=== PATIENT | male | born 1965 | race Caucasian/White ===

== ENCOUNTER 2017-03-07 20:19 | Emergency (ER) | payer MEDICARE ==
[~2017-03-07 20:19] MED LIST: ALPRAZOLAM0.5 MG PO; BREO INH; IPRAT-ALBUT 0.5-3 ML INH; MEDROL DOSEPAK 24 MG PO; OMNICEF 300 MG300 MG PO; OXYCODONE HCL10 MG PO; ROXICODONE TAB 55 MG PO; SPIRIVA HANDIH18 MCG INH; VENTOLIN HFA 66.7 GM INH
== END 2017-03-08 02:00 | disposition left against medical advice (07) ==
LOC: ER1 20:19
DX: Z53.21 Procedure and treatment not carried out due to patient leaving prior to being seen by health care provider (principal)
CPT/HCPCS: 81001

== ENCOUNTER 2021-01-29 00:03 | Observation (INO) | payer MEDICARE ==
[~2021-01-29] VITALS: Ht 182.9 cm; Wt 97.5 kg
[~2021-01-29 00:03] MED LIST changes: +ASPIR 8181 MG PO; +BREO ELLIPTA 11 EACH INH; -BREO INH; +FOLIC ACID 1 MG1 MG PO; +HYDROCHLOROTHIA25 MG PO; +LOPRESSOR 25 MG25 MG PO; +NEURONTIN 300300 MG PO; +OXYCODONE HCL30 MG PO; +OXYCONTIN 40 MG40 MG PO; +THIAMINE HCL100 MG PO; +VENTOLIN/PROVE0.5 ML INH; +VITAMIN D250000 UNIT PO; +XOPENEX HFA15 GM INH
[2021-01-29 01:07] LABS: HEMOGLOBIN 14.5 gm/dl (14.0-17.5); RED BLOOD COUNT 4.48 M/UL (4.20-5.50); WHITE BLOOD COUNT 9.9 K/UL (4.5-11.0)
[2021-01-29 01:23] LABS: BUN/CREATININE RATIO 26 (0-10)
[2021-01-29] MEDS ORDERED: ROXICODONE30 MG PO (09:05)
[2021-01-29] MEDS ORDERED: VITAMIN D21250 MCG PO (09:06)
[2021-01-29] MEDS ORDERED: HYDROCHLOROTHIA25 MG PO (09:09)
[2021-01-29] MEDS ORDERED: OMEGA 3 1,0001 EACH PO (09:11)
[2021-01-29] MEDS ORDERED: OXYMORPHONE HCL15 MG PO (09:12)
[2021-01-29] MEDS ORDERED: IPRAT-ALBUT 0.5-3 ML INH (09:22)
[2021-01-30] MEDS ORDERED: NICOTINE PATCH1 EAC2 TD (17:41)
[2021-01-30] MEDS ORDERED: PROTONIX40 MG PO (17:41)
[2021-02-02 21:11] LABS: AMPHETAMINES, URINE Negative ng/mL (Cutoff=1000); BARBITURATE Negative ng/mL (Cutoff=200); BENZODIAZEPINES Negative ng/mL (Cutoff=200); CANNABINOIDS Negative ng/mL (Cutoff=20); COCAINE (METABOLITE) Negative ng/mL (Cutoff=300); CREATININE 122.3 mg/dL (20.0-300.0); MEPERIDINE Negative ng/mL (Cutoff=200); METHADONE Negative ng/mL (Cutoff=300); OPIATES Negative ng/mL (Cutoff=300); OPIATES See Final Results ng/mL (Cutoff=300); OXYCODONE Positive (.); OXYCODONE (GC/MS) >3000 ng/mL (Cutoff=300); OXYCODONE/OXYMORPH Positive (Cutoff=300); OXYMORPHONE Positive (.); OXYMORPHONE (GC/MS) >3000 ng/mL (Cutoff=300); PHENCYCLIDINE Negative ng/mL (Cutoff=25); PROPOXYPHENE Negative ng/mL (Cutoff=300)
== END 2021-01-30 18:30 | disposition home or self-care (01) ==
LOC: ER1 00:03 → CDU 02:15 → M/S 11:52
PROVIDERS: Emergency Medicine; Internal Medicine Infectious Disease; ADMIT Internal Medicine
DX: R07.89 Other chest pain (principal); E87.6 Hypokalemia; I10 Essential (primary) hypertension; K21.9 Gastro-esophageal reflux disease without esophagitis; I25.10 Atherosclerotic heart disease of native coronary artery without angina pectoris; I73.9 Peripheral vascular disease, unspecified; F17.210 Nicotine dependence, cigarettes, uncomplicated; E55.9 Vitamin D deficiency, unspecified; E78.5 Hyperlipidemia, unspecified; F41.9 Anxiety disorder, unspecified; F32.9 Major depressive disorder, single episode, unspecified; G89.29 Other chronic pain; N40.0 Benign prostatic hyperplasia without lower urinary tract symptoms; J44.9 Chronic obstructive pulmonary disease, unspecified; Z79.82 Long term (current) use of aspirin; Z79.899 Other long term (current) drug therapy; Z79.891 Long term (current) use of opiate analgesic; Z20.822 Contact with and (suspected) exposure to COVID-19; Z98.890 Other specified postprocedural states
CPT/HCPCS: ECHO; 71045; 78452; 80053; 80061; 80307; 82550; 82553; 82607; 82746; 83036; 83874; 84439; 84443; 84484; 85025; 85652; 86140; 93005; 93017; 93306; 96372; 96374; 96375; 96376; 99285; A9502; C9113; G0378; J1650; J2785; U0002

== ENCOUNTER → 2021-03-19 | Outpatient (CLI) | payer MEDICARE ==
[~2021-03-19] MED LIST changes: +NICOTINE PATCH1 EAC2 TD; +OMEGA 3 1,0001 EACH PO; +OXYMORPHONE HCL15 MG PO; +PROTONIX40 MG PO; +ROXICODONE30 MG PO; +VITAMIN D21250 MCG PO
== END ==
LOC: KOH-I 13:00
DX: M51.16 Intervertebral disc disorders with radiculopathy, lumbar region (principal); M50.30 Other cervical disc degeneration, unspecified cervical region; M51.17 Intervertebral disc disorders with radiculopathy, lumbosacral region
CPT/HCPCS: 72148